=== PATIENT | male | born 1980 | race Caucasian/White ===

== ENCOUNTER 2023-11-28 15:37 | Emergency (ER) | payer SELFPAY ==
[2023-11-28] VITALS (7 sets, daily range): BP systolic 146–169; BP diastolic 90–105; PULSE 89–102; RESP 14–20; TEMP 36.6; O2SAT 98–100; BMI 25.0
[2023-11-28 16:17] LABS: Add Manual Diff / Slide Review NO; Basophils Absolute Auto 0 /uL (0-100); Basophils Percent Auto 0.5 % (0-2); Eosinophils Absolute Auto 0 /uL (0-450); Eosinophils Percent Auto 0.5 % (2-4); Hematocrit 45.9 % (41-53); Hemoglobin 16.1 g/dL (13.5-17.5); Lymphocytes Absolute Auto 1600 /uL (1100-4500); Lymphocytes Percent Auto 28.4 % (25-40); Mean Corpuscular Hemoglobin 34.1 PG (26-34); Mean Corpuscular Volume 97.6 fL (80-100); Monocytes Absolute Auto 400 /uL (0-900); Monocytes Percent Auto 6.6 % (3-14); Neutrophils Absolute Auto 3600 /uL (1500-7000); Platelet Count 406 X10^3/uL (150-400); Red Cell Distribution Width 16.6 % (11.6-14.8); White Blood Cell Count 5.6 X10^3/uL (4.5-11.0)
[2023-11-28] MEDS: THIAMINE 100 MG in SODIUM CHLORIDE 0.9% 100 ML 404 MG IV (16:18)
[2023-11-28] MEDS: SODIUM CHLORIDE 0.9% 1,000 ML 1000 ML IV (16:21)
[2023-11-28] MEDS: PHENobarbital 65 MG/ML VIAL 260 MG IV (16:22)
[2023-11-28] MEDS: ONDANSETRON 4 MG/2 ML INJ IV (16:23)
[2023-11-28 16:24] LABS: Alanine Aminotransferase 70 IU/L (<50); Albumin 4.9 g/dL (3.5-5.0); Albumin Globulin Ratio 1.2 (1.0-2.8); Alkaline Phosphatase 122 U/L (38-126); Aspartate Aminotransferase 71 IU/L (17-59); BUN Creatinine Ratio 8.2 (6-22); Blood Urea Nitrogen 6 mg/dL (9-20); Calcium 9.7 mg/dL (8.4-10.2); Carbon Dioxide 20 mmol/L (22-32); Chloride 98 mmol/L (98-107); Estimated Glomerular Filt Rate > 60 mL/min (>60); Ethanol (ETOH) < 10 mg/dL; Glucose 148 mg/dL (70-100); HEMOLYSIS < 15 (0-50); Lipase 113 U/L (23-300); Potassium 3.3 mmol/L (3.4-5.1); Sodium 134 mmol/L (137-145); Total Protein 8.9 g/dL (6.3-8.2)
--- NOTE | 2023-11-28 16:55 | ED.GENADULT ---
HPI - General Adult General Chief complaint: Toxicology Problem Stated complaint: ETOH, Panic attack Time Seen by Provider: 11/28/23 16:41 Source: patient Mode of arrival: Wheelchair History of Present Illness HPI narrative: Patient is a 43-year-old male. Does have a history of alcohol abuse. Has not had anything to drink for the past 2 days. He has had nausea and vomiting and extreme diarrhea for the past couple days. Unable to keep anything down. Has tried to withdraw from alcohol 1 time in the past. No history of seizures. No hallucinations. He states that earlier today he felt like his hands were shaking. States he could not feel his fingers despite him touching them. By the time I evaluated him he had received phenobarbital and also fluids and he states he was feeling much better. He states he has never had a panic attack in the past. Related Data Previous Rx's Medication Instructions Recorded ondansetron 4 mg disintegrating 4 mg PO Q6H PRN nausea and 11/28/23 tablet vomiting #14 tabs Allergies Allergy/AdvReac Type Severity Reaction Status Date / Time No Known Drug Allergies Allergy Verified 11/28/23 15:52 Review of Systems Constitutional Constitutional: Reports system reviewed and no additional complaints, except as documented Cardiovascular Cardiovascular: Reports system reviewed and no additional complaints, except as documented Respiratory Respiratory: Reports system reviewed and no additional complaints, except as documented Gastrointestinal Gastrointestinal: Reports system reviewed and no additional complaints, except as documented Integumentary/Breasts Skin/Breast: Reports system reviewed and no additional complaints, except as documented Neurologic Neurologic: Reports system reviewed and no additional complaints, except as documented Psychiatric Psychiatric: Reports system reviewed and no additional complaints, except as documented Hematologic/Lymphatic On Anticoagulants: No Patient History Social History Smoking Status: Never smoker Smoking Status: Never smoker alcohol intake frequency: 3 or more drinks per day Substance Use Type: marijuana Exam Initial Vital Signs Initial Vital Signs: Vital Signs Temperature 97.9 F 11/28/23 15:45 Pulse Rate 102 H 11/28/23 15:45 Respiratory Rate 18 11/28/23 15:45 Blood Pressure 156/90 H 11/28/23 15:45 Pulse Oximetry 100 11/28/23 15:45 Oxygen Delivery Method Room Air 11/28/23 15:45 Const General: cooperative and No ill appearing HENMT Head: normal to inspection Resp Effort & Inspection: normal respiratory effort Auscultation: clear to auscultation bilaterally Cardio Rate: regular rate Rhythm: regular rhythm GI Inspection: normal to inspection and non-distended Skin General: no rashes or lesions noted Neuro General: patient alert, patient awake, patient oriented x3 and moves all extremities Extrem General: normal to inspection Scores GCS Slaughter coma scale eye opening: Spontaneous Slaughter coma scale verbal response: Orientated Slaughter coma scale motor response: Obey commands Slaughter coma scale total score: 15 Course Orders Ordered: ED Orders 11/28/23 16:04 Complete Blood Count AUTO DIFF Stat Comprehensive Metabolic Panel Stat Ethanol (ETOH) Stat Lipase Stat 11/28/23 16:11 Urine Drug Screen, Rapid Stat Discontinued Medications Sodium Chloride (Normal Saline 0.9%) 1,000 mls @ 1,000 mls/hr IV BOLUS ONE Stop: 11/28/23 17:09 Last Infusion: 11/28/23 17:24 Dose: Infused Documented By: Admin: 11/28/23 16:21 Dose: 1,000 mls/hr Documented By: AXEL Thiamine HCl 100 mg/ Sodium (Chloride) 101 mls @ 404 mls/hr IV NOW ONE Stop: 11/28/23 16:11 Last Infusion: 11/28/23 16:55 Dose: Infused Documented By: Admin: 11/28/23 16:18 Dose: 404 mls/hr Documented By: AXEL Ondansetron HCl (Ondansetron 4 Mg/2 Ml Inj) 4 mg IV NOW ONE Stop: 11/28/23 16:23 Last Admin: 11/28/23 16:23 Dose: 4 mg Documented By: AXEL Phenobarbital (Phenobarbital 65 Mg/Ml Vial) 260 mg IV NOW ONE Stop: 11/28/23 16:11 Last Admin: 11/28/23 16:22 Dose: 260 mg Documented By: AXEL Vital Signs Vital signs: Vital Signs - 8 hr 11/28/23 15:45 11/28/23 15:56 11/28/23 15:58 Temperature 97.9 F Pulse Rate 102 H 96 H Respiratory Rate 18 Blood Pressure 156/90 H 169/102 H Pulse Oximetry 100 100 Oxygen Delivery Method Room Air 11/28/23 15:58 11/28/23 16:00 11/28/23 16:00 Temperature Pulse Rate 98 H 99 H Respiratory Rate 14 17 Blood Pressure 169/105 H Pulse Oximetry 100 100 Oxygen Delivery Method 11/28/23 16:30 11/28/23 16:30 11/28/23 17:00 Temperature Pulse Rate 89 Respiratory Rate 14 Blood Pressure 155/98 H 146/99 H Pulse Oximetry 100 Oxygen Delivery Method 11/28/23 17:00 Temperature Pulse Rate 95 H Respiratory Rate 20 Blood Pressure Pulse Oximetry 98 Oxygen Delivery Method Room Air Medical Decision Making Lab Data Lab results reviewed: Yes I reviewed the patient's lab results. 11/28/23 16:04 11/28/23 16:04 Labs: Lab Results 11/28/23 Range/Units 16:04 WBC 5.6 (4.5-11.0) X10^3/uL RBC 4.70 (4.5-5.9) X10^6/uL Hgb 16.1 (13.5-17.5) g/dL Hct 45.9 (41-53) % MCV 97.6 (80-100) fL MCH 34.1 H (26-34) PG MCHC 35.0 (30-36) % RDW 16.6 H (11.6-14.8) % Plt Count 406 H (150-400) X10^3/uL Neut % (Auto) 64.0 (50-75) % Lymph % (Auto) 28.4 (25-40) % [place] % (Auto) 6.6 (3-14) % Eos % (Auto) 0.5 L (2-4) % Baso % (Auto) 0.5 (0-2) % Neut # (Auto) 3600 (6754-1396) /uL Lymph # (Auto) 1600 (5607-6394) /uL [place] # (Auto) 400 (0-900) /uL Eos # (Auto) 0 (0-450) /uL Baso # (Auto) 0 (0-100) /uL Sodium 134 L (137-145) mmol/L Potassium 3.3 L (3.4-5.1) mmol/L Chloride 98 (98-107) mmol/L Carbon Dioxide 20 L (22-32) mmol/L BUN 6 L (9-20) mg/dL Creatinine 0.73 (0.66-1.25) mg/dL Estimated GFR > 60 (>60) mL/min BUN/Creatinine Ratio 8.2 (6-22) Glucose 148 H (70-100) mg/dL Calcium 9.7 (8.4-10.2) mg/dL Total Bilirubin 1.0 (0.2-1.3) mg/dL AST 71 H (17-59) IU/L ALT 70 H (<50) IU/L Alkaline Phosphatase 122 (38-126) U/L Total Protein 8.9 H (6.3-8.2) g/dL Albumin 4.9 (3.5-5.0) g/dL Globulin 4.0 (1.7-4.1) g/dL Albumin/Globulin Ratio 1.2 (1.0-2.8) Lipase 113 (23-300) U/L Ethyl Alcohol < 10 ( - 10) mg/dL MDM Narrative Medical decision making narrative: Patient was alert and oriented x3. GCS of 15. He states he does feel better after fluids and medications here in the ER. Had a discussion with him regarding his symptoms. He denied the offer for us to try to locate a detox facility. No indication for admission to the hospital today. Will send home with a prescription for Zofran. He does live at home with his mother. Will discharge patient home with return precautions. Discharge Plan Departure Patient Disposition: Home Clinical Impression: Alcohol withdrawal, Anxiety Instructions: Alcohol Withdrawal Activity Restrictions/Additional Instructions: I do recommend that you contact your primary care provider for a follow-up. Return to the emergency department at any point for new or worsening symptoms. Prescriptions: New ondansetron 4 mg tablet,disintegrating 4 mg PO Q6H PRN (Reason: nausea and vomiting) Qty: 14 0RF Stand Alone Forms: Patient Portal/API
== END 2023-11-28 18:06 | disposition home or self-care (01) ==
PROVIDERS: Emergency Provider Emergency Medicine
DX: F10.239 Alcohol dependence with withdrawal, unspecified (principal); F41.9 Anxiety disorder, unspecified; R11.2 Nausea with vomiting, unspecified
CPT/HCPCS: 36415; 80053; 80320; 83690; 85025; 96361; 96374; 96375; 99284; J2405; J2560

== ENCOUNTER 2025-02-08 15:31 | Emergency (ER) | payer SELFPAY ==
[2025-02-08 15:38] VITALS: BP 184/119; PULSE 106; RESP 14; TEMP 37.6; O2SAT 97; BMI 26.6
--- NOTE | 2025-02-08 15:38 | ED.CHESTPAIN ---
HPI - Chest Pain General Chief Complaint: Chest Pain Stated Complaint: Fit [facility], ETOH Time Seen by Provider: 02/08/25 15:37 History of Present Illness HPI narrative: 44-year-old male past medical history of alcohol abuse comes into the ED with police for fit for [facility]. According to the police patient is currently under arrest However patient is started complaining of chest pain cough sore throat ongoing and persistent since yesterday. Does admit to drinking alcohol but denies any other drugs at this time. Patient denies any other symptoms headache visual disturbances shortness of breath fever chills nausea vomiting abdominal pain or any other GI/ symptoms time. Related Data Previous Rx's Medication Instructions Recorded ondansetron 4 mg disintegrating 4 mg PO Q6H PRN nausea and 11/28/23 tablet vomiting #14 tabs Allergies Allergy/AdvReac Type Severity Reaction Status Date / Time No Known Drug Allergies Allergy Verified 02/08/25 15:41 Review of Systems Review of Systems Narrative: General: Fit for [facility] Denies fever, chills, weight loss HEENT: Positive sore throat Denies headache, eye drainage, eye irritation, head trauma, voice change Cardiovascular: Positive chest pain, denies palpitations, tachycardia Respiratory: Denies any shortness of breath, cough, wheeze, stridor GI/: Denies any abdominal pain, nausea, vomiting, diarrhea, bright red blood per rectum, melanotic stools, urinary frequency, urinary retention, dysuria, hematuria MSK: Denies any joint pain, muscle pains, swelling Skin: Denies any rashes, lesions, discoloration Neuro: Denies any headache, lightheadedness, dizziness, fainting, weakness Psych: Denies SI/HI Patient History Social History (System 12/06/23 @ 07:34 by Annalee Lagunas) Smoking Status: Unknown if ever smoked alcohol intake frequency: 3 or more drinks per day Exam Narrative Exam Narrative: General: Disheveled Cooperative, not in acute distress HEENT: Normocephalic, atraumatic, PERRLA, normal sclera, eyelids normal Neck: Active full range of motion, atraumatic Chest: Normal to inspection, negative crepitus, no overlying erythema ecchymosis Respiratory: Normal respiratory effort, not in acute respiratory distress, clear to auscultation bilaterally negative cough, wheeze, tachypnea, rhonchi, rales Cardiology: Regular rate rhythm negative gallop, murmur, rubs GI/: No tenderness to palpation, soft, non rigid, normal to inspection, exam deferred MSK: Full active range of motion in all 4 extremities, atraumatic, no tenderness to palpation of any bony prominences Skin: No rashes or lesions noted Neuro: Alert awake oriented x3, moves all 4 extremities spontaneously, cranial nerves intact, able to answer all questions appropriately follows commands appropriately Psych: Cooperative, negative suicidal or homicidal ideations Initial Vital Signs Initial Vital Signs: Vital Signs Temperature 99.7 F H 02/08/25 15:38 Pulse Rate 106 H 02/08/25 15:38 Respiratory Rate 14 02/08/25 15:38 Blood Pressure 184/119 H 02/08/25 15:38 Pulse Oximetry 97 02/08/25 15:38 Oxygen Delivery Method Room Air 02/08/25 15:38 Course Orders Ordered: ED Orders 02/08/25 15:39 XR chest 1V Stat Strep Grp A by PCR Rapid Stat EKG-12 Lead Stat 02/08/25 15:50 Complete Blood Count AUTO DIFF Stat Comprehensive Metabolic Panel Stat Covid-19 + FLU A/B + RSV - PCR Stat Lipase Stat NT-proBNP (BNP-Adult 18+) Stat Troponin & CK Cardiac Panel Stat Discontinued Medications Sodium Chloride (Normal Saline 0.9%) 1,000 mls @ 1,000 mls/hr IV BOLUS ONE Stop: 02/08/25 16:37 Last Admin: 02/08/25 16:03 Dose: 1,000 mls/hr Documented By: AI Vital Signs Vital signs: Vital Signs - 8 hr 02/08/25 15:38 Temperature 99.7 F H Pulse Rate 106 H Respiratory Rate 14 Blood Pressure 184/119 H Pulse Oximetry 97 Oxygen Delivery Method Room Air MDM - Chest Pain Differential Diagnosis Differential diagnosis: Likely st elevation myocardial infarction, chest pain and other (Pneumonia, strep throat, ACS, electrolyte abnormality) Lab Data 02/08/25 15:50 02/08/25 15:50 Labs: Lab Results 02/08/25 Range/Units 15:50 WBC 4.0 L (4.5-11.0) X10^3/uL RBC 4.35 L (4.5-5.9) X10^6/uL Hgb 14.2 (13.5-17.5) g/dL Hct 41.2 (41-53) % MCV 94.6 (80-100) fL MCH 32.6 (26-34) PG MCHC 34.5 (30-36) % RDW 14.4 (11.6-14.8) % Plt Count 200 (150-400) X10^3/uL Neut % (Auto) 63.1 (50-75) % Lymph % (Auto) 20.8 L (25-40) % [place] % (Auto) 12.3 (3-14) % Eos % (Auto) 3.2 (2-4) % Baso % (Auto) 0.6 (0-2) % Neut # (Auto) 2500 (0538-8683) /uL Lymph # (Auto) 800 L (4236-9980) /uL [place] # (Auto) 500 (0-900) /uL Eos # (Auto) 100 (0-450) /uL Baso # (Auto) 0 (0-100) /uL Sodium 143 (137-145) mmol/L Potassium 4.2 (3.4-5.1) mmol/L Chloride 103 (98-107) mmol/L Carbon Dioxide 22 (22-32) mmol/L BUN 8 L (9-20) mg/dL Creatinine 0.82 (0.66-1.25) mg/dL Estimated GFR > 60 (>60) mL/min BUN/Creatinine Ratio 9.8 (6-22) Glucose 121 H (70-100) mg/dL Calcium 10.1 (8.4-10.2) mg/dL Total Bilirubin 0.7 (0.2-1.3) mg/dL AST 482 H (17-59) IU/L ALT 239 H (<50) IU/L Alkaline Phosphatase 191 H (38-126) U/L Total Creatine Kinase 456 H (55-170) U/L Troponin I < 0.012 (0.01-0.034) ng/mL NT-Pro-B Natriuret Pep < 20 (<125) pg/mL Total Protein 8.9 H (6.3-8.2) g/dL Albumin 5.2 H (3.5-5.0) g/dL Globulin 3.7 (1.7-4.1) g/dL Albumin/Globulin Ratio 1.4 (1.0-2.8) Lipase 315 H (23-300) U/L ECG Data Interpretation: EKG interpreted ED physician sinus tachycardia 105 beats per minute, normal axis no STEMI MDM Narrative Medical decision making narrative: 44-year-old male history of alcohol abuse presents with police for fit for [facility]. Patient is currently under arrest, he does admit to drinking alcohol today no other drugs. States that he has been having chest pain and shortness of breath since yesterday as well as sore throat. EKG shows just showing sinus tachycardia no ischemic changes. Chest x-ray without any acute cardiopulmonary abnormality, lab work unremarkable, troponin negative, BNP unremarkable, patient will is fit for [facility] and we discharged to [facility] he was given strict return precautions. Patient with a heart score of 1. His chest pain more likely secondary to viral syndrome rather than cardiac in nature given his symptoms being more flu-like in nature. However he was instructed to follow up with Cardiology in outpatient setting Discharge Plan Departure Patient Disposition: Home Clinical Impression: Medical clearance for incarceration, Chest pain Instructions: DI for Chest Pain Activity Restrictions/Additional Instructions: Patient is fit for [facility] at this time Please read the discharge instructions sheet carefully and bring all papers to all doctor follow-up visits, as it may contain information that your doctor may want to see. Disease processes change and evolve, if your symptoms worsen or if you develop any new symptoms that are concerning to you please return for evaluation. Your evaluation today does not show any evidence of any life-threatening/serious illnesses requiring admission to the hospital or surgery. Please follow-up with your doctor for re-evaluation in approximately 1 day. Seek immediate medical attention for any worrisome symptoms. *If you do not have a primary care provider please contact the [facility] Resource line at [phone]. They will ask some questions about your medical history and help get you set up with a doctor in the community. Prescriptions: No Action ondansetron 4 mg tablet,disintegrating 4 mg PO Q6H PRN (Reason: nausea and vomiting) Qty: 14 0RF Stand Alone Forms: Patient Portal/API/Survey
--- NOTE | 2025-02-08 15:39 | DI.RAD.S_ITS ---
PROCEDURE: XR CHEST 1V INDICATIONS: chest tightness, cough TECHNIQUE: One view of the chest was acquired. COMPARISON: None. FINDINGS AND IMPRESSION: On this single view study, no consolidation or pleural effusion. Aortic calcifications. Normal heart size. Unremarkable osseous structures. Dictated by: Brandon Grullon M.D. on 02/08/2025 at 16:26 Approved by: Brandon Grullon M.D. on 02/08/2025 at 16:27
--- NOTE | 2025-02-08 15:51 | EKG_ITS ---
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
[2025-02-08] MEDS: SODIUM CHLORIDE 0.9% 1,000 ML 1000 ML IV (16:03)
[2025-02-08 16:19] LABS: Add Manual Diff / Slide Review NO; Basophils Absolute Auto 0 /uL (0-100); Basophils Percent Auto 0.6 % (0-2); Eosinophils Absolute Auto 100 /uL (0-450); Eosinophils Percent Auto 3.2 % (2-4); Hematocrit 41.2 % (41-53); Hemoglobin 14.2 g/dL (13.5-17.5); Lymphocytes Absolute Auto 800 /uL (1100-4500); Lymphocytes Percent Auto 20.8 % (25-40); Mean Corpuscular HGB Conc 34.5 % (30-36); Mean Corpuscular Hemoglobin 32.6 PG (26-34); Mean Corpuscular Volume 94.6 fL (80-100); Monocytes Absolute Auto 500 /uL (0-900); Monocytes Percent Auto 12.3 % (3-14); Neutrophils Absolute Auto 2500 /uL (1500-7000); Neutrophils Percent Auto 63.1 % (50-75); Platelet Count 200 X10^3/uL (150-400); Red Blood Cell Count 4.35 X10^6/uL (4.5-5.9); Red Cell Distribution Width 14.4 % (11.6-14.8)
[2025-02-08 16:22] LABS: Alanine Aminotransferase 239 IU/L (<50); Albumin 5.2 g/dL (3.5-5.0); Albumin Globulin Ratio 1.4 (1.0-2.8); Alkaline Phosphatase 191 U/L (38-126); Aspartate Aminotransferase 482 IU/L (17-59); BUN Creatinine Ratio 9.8 (6-22); Bilirubin Total 0.7 mg/dL (0.2-1.3); Blood Urea Nitrogen 8 mg/dL (9-20); Calcium 10.1 mg/dL (8.4-10.2); Carbon Dioxide 22 mmol/L (22-32); Chloride 103 mmol/L (98-107); Creatine Kinase 456 U/L (55-170); Estimated Glomerular Filt Rate > 60 mL/min (>60); Globulin 3.7 g/dL (1.7-4.1); Glucose 121 mg/dL (70-100); HEMOLYSIS 18 (0-50); Lipase 315 U/L (23-300); Potassium 4.2 mmol/L (3.4-5.1); Sodium 143 mmol/L (137-145); Total Protein 8.9 g/dL (6.3-8.2)
[2025-02-08 16:34] LABS: NT-proBNP (BNP-Adult 18+) < 20 pg/mL (<125); Troponin I < 0.012 ng/mL (0.01-0.034)
[2025-02-08 16:44] LABS: Influenza A - CEPHEID Flu A NEGATIVE (NEGATIVE); Influenza B - CEPHEID Flu B NEGATIVE (NEGATIVE); Respiratory Syncytial Virus Negative (Negative)
[2025-02-08 16:45] VITALS: BP 172/97; PULSE 103; O2SAT 100
[2025-02-08 16:46] LABS: COVID-19 CEPHEID 4-PLEX PCR Negative (Negative)
== END 2025-02-08 16:45 | disposition home or self-care (01) ==
PROVIDERS: Emergency Provider Student in an Organized Health Care Education/Training Program
DX: Z00.8 Encounter for other general examination (principal); R07.9 Chest pain, unspecified
CPT/HCPCS: 0241U; 36415; 71045; 80053; 82550; 83690; 83880; 84484; 85025; 93005; 93010; 96360; 99284